=== PATIENT | female | born 1955 | race Caucasian/White ===

== ENCOUNTER 2020-05-12 11:16 | Day surgery (SDC) | payer MEDICARE, OTHER ==
[~2020-05-12 11:16] MED LIST: Lactated Ringers 1,000 ML IV SCH
[2020-05-12] MEDS ORDERED: fentaNYL 100 MCG/2 ML SDV ONE (11:46)
[2020-05-12] MEDS ORDERED: Propofol 200 MG/20 ML SDV ONE ×2 (11:46→12:43)
--- NOTE | 2020-05-12 15:02 | OR ---
PREOPERATIVE DIAGNOSIS: Positive Cologuard test. POSTOPERATIVE DIAGNOSIS: Positive Cologuard test. PROCEDURE PERFORMED: Colonoscopy with polypectomy. INDICATION: The patient is a 65-year-old female who had just had a Cologuard test that came back positive, presents for colonoscopy for further evaluation. PROCEDURE IN DETAIL: This was done in the endoscopy suite. Sedation was given per Anesthesia. She was placed in left lateral position. First, a rectal exam was done and was normal. Scope was introduced into the rectum and slowly advanced to the rectum, sigmoid, descending, transverse, and ascending colon until the cecum was reached. Upon reaching the cecum, scope was slowly withdrawn looking at all mucosal surfaces on the way out. A polyp was found approximately 1 cm in the proximal ascending colon taken out by hot loop forceps. Another polyp was found at 30 cm taken out by hot loop forceps and a 3rd probable hyperplastic polyp was found at 10 cm taken out by hot loop forceps. Finally, she had moderate sigmoid diverticulosis. FINAL DIAGNOSES: Polyp in the ascending colon, polyp at 30 cm, polyp at 10 cm, and sigmoid diverticulosis. BKD: 05/12/2020 13:06:56 MODL: 05/12/2020 14:34:05 /[id number]
== END 2020-05-12 14:45 | disposition home or self-care (01) ==
LOC: VM.SDS 11:16
PROVIDERS: ATTEND Surgery
DX: D12.2 Benign neoplasm of ascending colon (principal); K57.30 Diverticulosis of large intestine without perforation or abscess without bleeding; E78.5 Hyperlipidemia, unspecified; I10 Essential (primary) hypertension; E03.9 Hypothyroidism, unspecified; Z98.890 Other specified postprocedural states; Z79.899 Other long term (current) drug therapy; Z79.890 Hormone replacement therapy; Z01.812 Encounter for preprocedural laboratory examination; Z20.828 Contact with and (suspected) exposure to other viral communicable diseases
CPT/HCPCS: 00812; J2704; J3010; J7120; U0002

== ENCOUNTER 2021-10-31 21:50 | Observation (INO) | payer MEDICARE, OTHER ==
[2021-10-31] MEDS ORDERED: Sodium Chloride 0.9% 10 ML Syringe FLUSH PRN (22:05)
[2021-10-31] MEDS ORDERED: Meclizine 25 MG Tab PO ONE (22:06)
[2021-10-31] MEDS ORDERED: Sodium Chloride 0.9% 1,000 ML IV SCH (22:15)
[2021-10-31 22:47] LABS: CHLORIDE,CL 94 mmol/L (98-107); PTT,PARTIAL THROMBOPLSTIN TIME 25.2 SEC (20.5-30.9); SODIUM,NA 131 mmol/L (136-145)
[2021-10-31 23:27] LABS: ANION GAP 10.6 mmol/L (5-15)
[2021-10-31] MEDS ORDERED: Iopamidol 755 Mg/ML 100 ML Bottle IVPUSH ONE (23:31)
[2021-10-31] MEDS ORDERED: Sodium Chloride 0.9% with KCl 1,000 ML IV SCH (23:45)
[2021-11-01] MEDS ORDERED: Ondansetron 4 MG/2 ML SDV IVPUSH ONE (00:03)
[2021-11-01] MEDS ORDERED: Losartan 50 MG Tab PO SCH (08:00)
[2021-11-01] MEDS ORDERED: Simvastatin 20 MG Tab PO SCH (08:00)
[2021-11-01] MEDS ORDERED: Levothyroxine 50 MCG Tab PO SCH (08:00)
[2021-11-01] MEDS ORDERED: Hydrochlorothiazide 12.5 MG Cap PO SCH (08:00)
[2021-11-01 08:38] LABS: CHLORIDE,CL 104 mmol/L (98-107); SODIUM,NA 136 mmol/L (136-145)
[2021-11-01 08:47] LABS: ANION GAP 10.9 mmol/L (5-15)
[2021-11-02] MEDS ORDERED: Levothyroxine 75 MCG Tab PO SCH (08:00)
[2021-11-03] MEDS ORDERED: Levothyroxine 75 MCG Tab PO SCH (08:00)
== END 2021-11-01 12:05 | disposition home or self-care (01) ==
LOC: VM.ED 21:50 → VM.MS 11-01
PROVIDERS: ADMIT Physician Assistant; ATTEND Physician Assistant
DX: E87.6 Hypokalemia (principal); E87.1 Hypo-osmolality and hyponatremia; I10 Essential (primary) hypertension; E78.00 Pure hypercholesterolemia, unspecified; E03.9 Hypothyroidism, unspecified; Z79.899 Other long term (current) drug therapy; Z98.890 Other specified postprocedural states; Z20.822 Contact with and (suspected) exposure to COVID-19
CPT/HCPCS: 36415; 70450; 70496; 80048; 80053; 81001; 83735; 84100; 84443; 84484; 85025; 85610; 85730; 86140; 93005; 93010; 99285-25; A9270-GY; G0378; J3480; J7030; Q9967; U0002

== ENCOUNTER 2021-11-08 11:53 | Emergency (ER) | payer MEDICARE, OTHER ==
[2021-11-08 13:15] LABS: CHLORIDE,CL 94 mmol/L (98-107)
[2021-11-08 13:16] LABS: ANION GAP 12.4 mmol/L (5-15); SODIUM,NA 129 mmol/L (136-145)
[2021-11-08] MEDS ORDERED: Sodium Chloride 0.9% 500 ML IV ONE (13:34)
[2021-11-08] MEDS ORDERED: amLODIPine 5 MG Tab PO ONE (14:03)
== END 2021-11-08 14:15 | disposition home or self-care (01) ==
LOC: VM.ED 11:53
DX: E87.1 Hypo-osmolality and hyponatremia (principal); E78.00 Pure hypercholesterolemia, unspecified; I10 Essential (primary) hypertension; E03.9 Hypothyroidism, unspecified; Z79.899 Other long term (current) drug therapy
CPT/HCPCS: 36415; 80053; 81001; 82550; 83615; 83735; 84484; 85025; 86140; 93005; 93010; 99284; 99284-25; A9270-GY; J7030

== ENCOUNTER 2023-08-28 02:58 | Emergency (ER) | payer MEDICARE, OTHER ==
[2023-08-28 03:40] LABS: BASOPHILS PERCENT AUTO 0.2 % (0.2-1.2); EOSINOPHILS ABSOLUTE AUTO 0.1 x10^3/uL (0.0-0.5); EOSINOPHILS PERCENT AUTO 1.7 % (0.0-4.0); HEMATOCRIT 38.6 % (33.0-47.0); HEMOGLOBIN 13.2 g/dL (12.0-16.0); LYMPHOCYTES ABSOLUTE AUTO 2.7 x10^3/uL (1.0-4.8); MEAN CORPUSCULAR HEMOGLOBIN 29.7 pg (26.0-32.0); MEAN CORPUSCULAR HGB CONC 34.2 g/dL (32.0-36.0); MEAN CORPUSCULAR VOLUME 86.9 fL (78.0-93.0); MONOCYTES ABSOLUTE AUTO 0.4 x10^3/uL (0.0-0.8); MONOCYTES PERCENT AUTO 8.1 % (2.0-11.0); NEUTROPHILS ABSOLUTE AUTO 2.2 x10^3/uL (1.8-7.7); PLATELET COUNT,PLT 231 x10^3/uL (130-400); RED BLOOD CELL COUNT 4.44 x10^6/uL (4.00-5.50); WHITE BLOOD CELL COUNT,WBC 5.5 x10^3/uL (4.0-10.0)
[2023-08-28] MEDS: Sodium Chloride 0.9% 1,000 ML IV ONE (03:40)
[2023-08-28 03:52] LABS: APPEARANCE,URINE CLEAR (CLEAR); BILIRUBIN,URINE NEGATIVE (NEGATIVE); COLOR,URINE LIGHT YELLOW (YELLOW); GLUCOSE,URINE NEGATIVE (NEGATIVE); KETONES,URINE NEGATIVE (NEGATIVE); LEUKOCYTE ESTERASE,URINE TRACE (NEGATIVE); NITRITE,URINE NEGATIVE (NEGATIVE); OCCULT BLOOD,URINE NEGATIVE (NEGATIVE); PH,URINE 7.5 (5.0-8.0); PROTEIN,URINE NEGATIVE (NEGATIVE); UROBILINOGEN,URINE 0.2 EU/dL (0.2)
[2023-08-28 03:56] LABS: A/G RATIO 1.12; ALANINE AMINOTRANSFERASE,ALT 14 U/L (14-59); ALBUMIN 3.7 g/dL (3.4-5.0); ALKALINE PHOSPHATASE 74 U/L (46-116); ASPARTATE AMNIOTRANSFERASE,AST 19 U/L (15-37); BILIRUBIN TOTAL 0.6 mg/dL (0.2-1.0); BLOOD UREA NITROGEN,BUN 17 mg/dL (7-18); CARBON DIOXIDE,CO2 27 mmol/L (21-32); CHLORIDE,CL 103 mmol/L (98-107); CREATININE 0.7 mg/dL (0.55-1.02); EST CRCL DRUG DOSING (CG) 66.42 mL/min; GLUCOSE RANDOM 105 mg/dL (70-99); MAGNESIUM 2.1 mg/dL (1.8-2.4); POTASSIUM,K 3.1 mmol/L (3.5-5.1); SODIUM,NA 143 mmol/L (136-145)
[2023-08-28 03:58] LABS: ANION GAP 16.1 mmol/L (5-15); C-REACTIVE PROTEIN < 0.50 mg/dL (<=0.50); ESTIMATED GFR 94 mL/min (>=60)
[2023-08-28 04:00] LABS: BACTERIA,URINE RARE /HPF (NOT SEEN); MUCUS,URINE NOT SEEN /LPF (NOT SEEN); RBC,URINE 0-5 /HPF (NOT SEEN); SQUAMOUS EPITHELIAL CELLS,UR RARE /HPF (NOT SEEN); WBC,URINE 0-5 /HPF (NOT SEEN)
== END 2023-08-28 04:55 | disposition home or self-care (01) ==
LOC: VM.ED 02:58
DX: R42 Dizziness and giddiness (principal); E87.6 Hypokalemia; I10 Essential (primary) hypertension; E78.00 Pure hypercholesterolemia, unspecified; E03.9 Hypothyroidism, unspecified; Z79.899 Other long term (current) drug therapy
CPT/HCPCS: 70450; 71046; 80053; 81001; 83735; 84484; 85025; 86140; 87086; 93005; 93010; 96360; 99284; 99285-25; J7030